=== PATIENT | female | born 1985 | race Caucasian/White ===

== ENCOUNTER → 2017-05-03 | Outpatient (CLI) | payer BC ==
[~2017-05-03] MED LIST: MAGN400T36 PO
== END | disposition home or self-care (01) ==
LOC: STAR 12:45
PROVIDERS: ATTEND Obstetrics & Gynecology Female Pelvic Medicine and Reconstructive Surgery
DX: Z02.9 Encounter for administrative examinations, unspecified (principal)

== ENCOUNTER 2017-05-08 11:06 | Day surgery (SDC) | payer BC ==
[~2017-05-08] VITALS: Ht 162.6 cm; Wt 75.0 kg
[~2017-05-08 11:06] MED LIST changes: +BUPIVACAINE/PF 0.25% ONE; +EPINEPHRINE 1 MG/ML, 1ML ONE
[2017-05-08] MEDS ORDERED: LACTATED RINGERS 1,000 ML IV SCH (11:22)
[2017-05-08 12:03] LABS: HCG UR OBC PASS
[2017-05-08] MEDS ORDERED: FENTANYL PF 100 MCG/2ML ONE ×2 (12:53→15:56)
[2017-05-08] MEDS ORDERED: MIDAZOLAM 1 MG/ML, 2ML ONE (12:53)
[2017-05-08] MEDS ORDERED: OXYcodone 5 MG/5 ML ORAL.SOL UDC PO PRN (13:00)
[2017-05-08] MEDS ORDERED: ACETAMINOPHEN 325 MG TABLET PO PRN (13:00)
[2017-05-08] MEDS ORDERED: LABETALOL 5MG/ML, 20ML IV PRN (13:00)
[2017-05-08] MEDS ORDERED: MEPERIDINE/PF 25MG/0.5ML IVPush PRN (13:00)
[2017-05-08] MEDS ORDERED: ONDANSETRON 2MG/ML, 2ML IVPush PRN (13:00)
[2017-05-08] MEDS ORDERED: PROMETHAZINE 25 MG/ML, 1ML IV PRN (13:00)
[2017-05-08] MEDS ORDERED: hydrALAzine 20 MG/ML, 1ML IV PRN (13:00)
[2017-05-08] MEDS ORDERED: HYDROmorphone 1 MG/ML, 1ML IV PRN (13:00)
[2017-05-08] MEDS ORDERED: METOCLOPRAMIDE 5 MG/ML, 2ML ONE (14:44)
[2017-05-08] MEDS ORDERED: KETOROLAC 30 MG/1 ML ONE (14:44)
[2017-05-08] MEDS ORDERED: KETAMINE 10 MG/ML, 20ML ONE (14:44)
[2017-05-08] MEDS ORDERED: DEXAMETHASONE 4 MG/ML, 1ML ONE (14:44)
[2017-05-08] MEDS ORDERED: SUCCINYLCHOLINE 20 MG/ML, 10ML ONE (14:44)
[2017-05-08] MEDS ORDERED: CEFOTETAN 2 GM ONE (14:44)
[2017-05-08] MEDS ORDERED: PROPOFOL 10 MG/ML, 20ML ONE (14:44)
[2017-05-08] MEDS ORDERED: ONDANSETRON 2MG/ML, 2ML ONE (14:44)
[2017-05-08] MEDS ORDERED: ACETAMINOPHEN 650 MG/20.3 ML UDC ONE (15:56)
[2017-05-08] MEDS ORDERED: OXYcodone 5 MG/5 ML ORAL.SOL UDC ONE (15:56)
[2017-05-08] MEDS: FENTANYL PF 100 MCG/2ML IV PRN ×2 (15:59→16:23)
== END 2017-05-08 18:00 ==
LOC: OUT 11:06
PROVIDERS: ATTEND Obstetrics & Gynecology Female Pelvic Medicine and Reconstructive Surgery
DX: Z30.2 Encounter for sterilization (principal); N92.1 Excessive and frequent menstruation with irregular cycle; N94.6 Dysmenorrhea, unspecified; N93.9 Abnormal uterine and vaginal bleeding, unspecified; I42.9 Cardiomyopathy, unspecified; Z90.49 Acquired absence of other specified parts of digestive tract; Z72.89 Other problems related to lifestyle
CPT/HCPCS: 58301; 58563; 58670; 81025; J0171; J0330; J1100; J1885; J2250; J2405; J2704; J2765; J3010; J3490; J7120; S0074